=== PATIENT | female | born 1935 | race Caucasian/White ===

== ENCOUNTER → 2017-01-07 | Outpatient (CLI) | payer MEDICARE, OTHER | END | disposition home or self-care (01) | LOC: RAD.S 01-05 13:57 | DX: M54.5 Low back pain (principal); M50.320 Other cervical disc degeneration, mid-cervical region, unspecified level; M47.816 Spondylosis without myelopathy or radiculopathy, lumbar region; M48.06 Spinal stenosis, lumbar region ==